=== PATIENT | male | born 1960 | race Caucasian/White ===

== ENCOUNTER 2020-06-26 07:17 | Inpatient (IN) | payer OTHER, SELFPAY ==
[2020-06-26] VITALS (8 sets, daily range): BP systolic 129–162; BP diastolic 61–97; PULSE 76–110; RESP 18; TEMP 36.4–36.8; O2SAT 95–100; BMI 38.3
--- NOTE | ~2020-06-26 | CT_ITS ---
EXAMINATION: CT pelvis wo con EXAM DATE: 06/27/2020 08:26 INDICATION: Hematuria, possible bladder clot. TECHNIQUE: Spiral CT pelvis wo con was performed without contrast. Axial, coronal and sagittal imag es were reviewed. The dose-length product (DLP) for this examination was 810.49 mGy-cm. The exposur e was tailored according to patient size (auto mA exposure control), and iterative reconstruction ( IR) was used as additional dose reduction technique. There is no prior study for comparison. FINDINGS: There is a Mckinney catheter within collapsed bladder. There is prostatomegaly, with the prost ate measuring 5.5 cm transverse dimension. No focal bladder clot is specifically identified. There ar e some limitations from right hip replacement causing metallic artifact. Severe left hip osteoarthrit is. No hydroureter. Nonobstructive bowel gas pattern with moderate amount of colonic stool and gas. IMPRESSION: 1. Mckinney catheter in position. 2. Moderate prostatomegaly. Reviewed, dictated and finalized at location B.
--- NOTE | 2020-06-26 07:54 | ED.MALEGU ---
HPI - Male Genitourinary General Chief complaint: Urogenital-Male Stated complaint: watts not draining Time Seen by Provider: 06/26/20 07:24 History of Present Illness HPI Narrative: Patient is a 60-year-old male who presents the ER with urinary retention. Patient is recently undergone right hip replacement. He then developed urinary retention. He went to urology consultants and had a Watts catheter placed with some blood removed. He then had to have it readjusted a day later. Patient reports he has had no urine output since yesterday morning. He has discomfort in his lower abdomen and feels like he needs to urinate. No fevers or chills or sweats. No nausea or vomiting. Reports some mild lower extremity edema that is new. Related Data Home Medications Medication Instructions Recorded Confirmed aspirin 81 mg tablet,delayed 81 mg PO DAILY 05/16/20 06/26/20 release folic acid 400 mcg tablet 0.4 mg PO DAILY 05/16/20 06/26/20 magnesium oxide 500 mg capsule 500 mg PO DAILY 05/16/20 06/26/20 vit C,E,zinc,copper-xlkht7k 250 1 cap PO DAILY 05/16/20 06/26/20 mg-lutein 5 mg-zeaxanthin 1 mg capsule famotidine 20 mg PO BID PRN 06/26/20 06/26/20 naproxen 500 mg PO BID 06/26/20 06/26/20 oxycodone-acetaminophen 1 tablet PO Q4-6H PRN 06/26/20 06/26/20 sulfamethoxazole-trimethoprim 1 tablet PO BID 06/26/20 06/26/20 tamsulosin 0.4 mg PO DAILY 06/26/20 06/26/20 Allergies Allergy/AdvReac Type Severity Reaction Status Date / Time No Known Allergies Allergy Unverified 06/26/20 07:26 Review of Systems Review of Systems: All systems reviewed & are unremarkable except as noted in HPI and below Constitutional: Constitutional: Denies chills, Denies fever(s) and Denies weakness Gastrointestinal: Gastrointestinal: Reports abdominal pain, Denies nausea and Denies vomiting Genitourinary: Genitourinary: Reports hematuria, Reports oliguria and Denies dysuria PMFSH Past Medical History Medical History BPH w/o urinary obs/LUTS Hyperlipidemia, unspecified Surgical History Surgical History History of hip replacement Family History Family History Sibling Patient's brother is in good health Social History Social History Years smoked: 12 Smoking status: Former smoker Smoking end date: 09/23/85 Alcohol intake: never Gender identity (if verbalized by the patient): Male Sexual Orientation (if Verbalized by the Patient): Straight or Heterosexual Spiritual care concerns: No Exam Narrative: Exam Narrative: GENERAL: Well-appearing, well-nourished, and in no acute distress. HEAD: Normocephalic, atraumatic. CHEST: Clear to auscultation. No respiratory distress. HEART: Regular rate and rhythm. Normal peripheral pulses. ABDOMEN: Soft, nontender, distended bladder felt at the umbilicus. EXTREMITIES: Normal range of motion. No edema. SKIN: Warm, dry, no rash. NEURO: Alert and oriented x3. PSYCH: Normal mood and affect. Course Course Emergency Course: Discussed case with urology. Admit to their service, continue IV hydration. 1 large blood clot removed otherwise no additional clots with the CBI. Vital Signs Vital signs: Vital Signs Temperature 97.6 F 06/26/20 07:21 Pulse Rate 110 H 06/26/20 07:21 Respiratory Rate 18 06/26/20 07:21 Blood Pressure 162/97 H 06/26/20 07:21 Pulse Oximetry 100 06/26/20 07:21 Temperature 97.8 F 06/26/20 14:00 Pulse Rate 94 06/26/20 14:00 Respiratory Rate 18 06/26/20 14:00 Blood Pressure 137/65 06/26/20 14:00 Pulse Oximetry 96 06/26/20 14:00 MDM - Male Genitourinary Lab Data Result diagrams: 06/26/20 13:47 06/26/20 07:58 Labs: Lab Results 06/26/20 06/26/20 06/26/20 Range/Units 07:58 07:58 07:5
[2020-06-26 08:06] LABS: Basophils Absolute Auto 0.1 K/mm3 (0.0-0.1); Basophils Percent Auto 0.9 % (0.2-1.2); Eosinophils Absolute Auto 0.1 K/mm3 (0-0.3); Eosinophils Percent Auto 1.7 % (0-4.4); Hematocrit 30.6 % (42.0-52.0); Immature Granulocyte Absolute 0.05 K/mm3 (0.00-0.031); Immature Granulocyte Percent A 0.9 % (0-0.5); Lymphocytes Absolute Auto 0.98 K/mm3 (0.9-3.2); Lymphocytes Percent Auto 16.8 % (18.3-44.2); Mean Corpuscular HGB Conc 32.7 g/dl (32-36); Mean Corpuscular Hemoglobin 29.3 pg (26-34); Mean Corpuscular Volume 89.7 fl (80-100); Mean Platelet Volume 7.5 fl (7.4-10.4); Monocytes Absolute Auto 0.5 K/mm3 (0.1-0.6); Monocytes Percent Auto 8.1 % (2.6-8.5); Neutrophils Absolute Auto 4.2 K/mm3 (1.3-6.7); Neutrophils Percent Auto 71.6 % (45.5-73.1); Platelet Count Result 209 k/mm3 (150-375); Red Blood Count 3.41 M/mm3 (4.6-6.20); Red Cell Distribution Width 12.2 % (11.5-14.5); White Blood Count 5.8 K/mm3 (4.5-10.0)
[2020-06-26 08:11] LABS: Add Urine Microscopic? YES; Appearance Urine Cloudy (Clear); Bilirubin Urine Negative (Negative); Blood Urine 3+ (Negative); Color Urine Red (Yellow); Glucose Urine UA Negative (Negative); Ketones Urine Negative (Negative); Leukocyte Esterase Ur Trace LEU/UL (Negative); Nitrate Urine Negative (Negative); Protein Urine 2+ mg/dL (Negative); RBC Urine >75 /hpf (0-2); Specific Grav Ur 1.015 (1.001-1.035); Urobilinogen Urine Negative mg/dL (<2.0); WBC Urine >75 /hpf
[2020-06-26 08:17] LABS: Anion Gap 9 mmol/L (8-16); Blood Urea Nitrogen 29 mg/dL (9-20); Calcium 8.9 mg/dL (8.4-10.2); Carbon Dioxide 26 mmol/L (22-30); Chloride 105 mmol/L (98-107); Estimated CRCL calculation 31 ml/min; Estimated Glomerular Filt Rate 25; Glucose 100 mg/dL (75-110); Potassium 5.1 mmol/L (3.4-5.0); Sodium 140 mmol/L (137-145)
--- NOTE | 2020-06-26 08:55 | PC.NURSE ---
patient's medication list updated with list provided by
--- NOTE | 2020-06-26 09:12 | PC.NURSE ---
3 way watts catheter noted to have 2500 ml urine output, blood tinged with clots noted. CBI started at this time.
[2020-06-26] MEDS: SODIUM CHLORIDE 0.9% IV 1,000 ML 125 ML IV CONT ×2 (11:47→20:40)
--- NOTE | 2020-06-26 12:30 | PC.NURSE ---
This patient, Gab Gibson, was admitted to 3 [facility] Surg Room 319-01. Patient/family oriented to hospital policies and general routines including ID bracelet, bed and alarms, visiting hours, pain management, procedures, bathroom and other care routines, personal items, smoking policy, room service/diet, and visiting hours. Valuables list has been completed. Information on how to activate the Rapid Response Team has been discussed. Patient/Family are encouraged to report perceived risks to care and to ask questions if they do not understand what they are told or what they should do.
--- NOTE | 2020-06-26 13:16 | PM.IMHP ---
H&P: HPI History of Present Illness Date/Time: 06/26/20 13:16 Chief complaint: Urinary retention/acute kidney injury Narrative: Gab Gibson is a 60 year old male without prior significant urological history until a recent orthopedic procedure, after which he developed postoperative urinary retention. Retention went unrecognized for nearly a week and when he eventually came to have a catheter placed over 1000 cc was drained. He has then developed intermittent gross hematuria with clot retention ever is a result, almost certainly, of rapid bladder decompression. Prior to all this he has no significant voiding symptoms or other urological problems. Review of Systems Cardiovascular: Cardiovascular: Denies chest pain, Denies lightheadedness, Denies palpitations and Denies dyspnea Respiratory: Respiratory: Denies dyspnea Gastrointestinal: Gastrointestinal: Denies diarrhea, Denies nausea and Denies vomiting Genitourinary: Genitourinary: Denies hematuria and Denies dysuria Endocrine: Endocrine: Denies palpitations PMFSH Past Medical History Medical History BPH w/o urinary obs/LUTS Hyperlipidemia, unspecified Surgical History Surgical History History of hip replacement Family History Family History Sibling Patient's brother is in good health Social History Social History Years smoked: 12 Smoking status: Former smoker Smoking end date: 09/23/85 Alcohol intake: never Gender identity (if verbalized by the patient): Male Sexual Orientation (if Verbalized by the Patient): Straight or Heterosexual Spiritual care concerns: No Meds Home Medications and Allergies Home Medications Medication Instructions Recorded Confirmed Type aspirin 81 mg tablet,delayed 81 mg PO DAILY 05/16/20 06/26/20 History release folic acid 400 mcg tablet 0.4 mg PO DAILY 05/16/20 06/26/20 History magnesium oxide 500 mg capsule 500 mg PO DAILY 05/16/20 06/26/20 History vit C,E,zinc,copper-[id number] 250 1 cap PO DAILY 05/16/20 06/26/20 History mg-lutein 5 mg-zeaxanthin 1 mg capsule famotidine 20 mg PO BID PRN 10/04/20 10/04/20 History naproxen 500 mg PO BID 06/26/20 06/26/20 History oxycodone-acetaminophen 1 tablet PO Q4-6H PRN 06/26/20 06/26/20 History sulfamethoxazole-trimethoprim 1 tablet PO BID 06/26/20 06/26/20 History tamsulosin 0.4 mg PO DAILY 06/26/20 06/26/20 History Allergies Allergy/AdvReac Type Severity Reaction Status Date / Time No Known Allergies Allergy Unverified 06/26/20 07:26 Vital Signs Vital Signs - 24 hr 06/26/20 07:21 06/26/20 08:26 06/26/20 09:25 Temperature 97.6 F Pulse Rate 110 H 84 84 Respiratory Rate 18 18 18 Blood Pressure 162/97 H 133/75 147/74 H Pulse Oximetry 100 95 99 06/26/20 10:26 06/26/20 11:11 06/26/20 11:20 Temperature 98.0 F Pulse Rate 88 77 81 Respiratory Rate 18 18 18 Blood Pressure 145/76 H 140/76 147/83 H Pulse Oximetry 100 100 98 Exam Const: General: no acute distress Resp: Effort & Inspection: normal respiratory effort GI: Inspection: non-distended GI Palp: No abdominal tenderness and No Guarding due to palpation present (GI) Auscultation: normal bowel sounds H&P: Results Labs Labs: Short CBC 06/26/20 Range/Units 07:58 WBC 5.8 (4.5-10.0) K/mm3 Hgb 10.0 L (14.0-18.0) g/dL Hct 30.6 L (42.0-52.0) % Plt Count 209 (150-375) k/mm3 BMP 06/26/20 07:58 Sodium 140 Potassium 5.1 H Chloride 105 Carbon Dioxide 26 BUN 29 H Creatinine 2.60 H Glucose 100 Calcium 8.9 Urine 06/26/20 Range/Units 07:58 Urine Color Red H (Yellow) Urine Appearance Cloudy H (Clear) Urine pH 7.0 (5.0-9.0) Ur Specific [place] 1.015 (1.001-1.035) Urine Protein 2+ H (Negative) mg/
[2020-06-26 14:01] LABS: Hematocrit 31.5 % (42.0-52.0); Hemoglobin 10.6 g/dL (14.0-18.0); Mean Corpuscular HGB Conc 33.7 g/dl (32-36); Mean Corpuscular Hemoglobin 29.9 pg (26-34); Mean Corpuscular Volume 88.7 fl (80-100); Mean Platelet Volume 7.8 fl (7.4-10.4); Platelet Count Result 220 k/mm3 (150-375); Red Blood Count 3.55 M/mm3 (4.6-6.20); White Blood Count 6.6 K/mm3 (4.5-10.0)
[2020-06-26] MEDS: FINASTERIDE 5 MG TABLET PO (14:40)
[2020-06-26] MEDS: TAMSULOSIN HCL 0.4 MG CAPSULE PO (20:40)
[2020-06-27] MEDS: SODIUM CHLORIDE 0.9% IV 1,000 ML 125 ML IV CONT ×3 (04:47→20:27)
[2020-06-27 06:00] VITALS: BP 135/75; PULSE 82; RESP 18; TEMP 36.6; O2SAT 97
[2020-06-27 06:45] LABS: Anion Gap 6 mmol/L (8-16); Blood Urea Nitrogen 18 mg/dL (9-20); Calcium 8.4 mg/dL (8.4-10.2); Carbon Dioxide 26 mmol/L (22-30); Chloride 110 mmol/L (98-107); Estimated CRCL calculation 62 ml/min; Estimated Glomerular Filt Rate 56; Glucose 98 mg/dL (75-110); Potassium 4.4 mmol/L (3.4-5.0); Sodium 142 mmol/L (137-145)
--- NOTE | 2020-06-27 07:33 | WPDUROPN2 ---
Progress Note: A&P Assessment and Plan (1) BPH w/o urinary obs/LUTS: Code(s): N40.0 - Benign prostatic hyperplasia without lower urinary tract symptoms Status: Acute (2) Gross hematuria: Code(s): R31.0 - Gross hematuria Status: Acute Assessment and Plan: Postoperative urinary retention resulting from underlying BPH complicated by adverse effects of anesthetics and analgesics on normal detrusor function, in addition to overdistention of bladder. Intermittent hematuria clot retention very likely related to rapid bladder decompression. Patient on continuous bladder irrigation on his urine is perfectly clear. I will maximize medication for BPH ( Flomax b.i.d. and finasteride ) with voiding trial in the next day or two, if his urine remains clear 06/27/2020 Urine clear on CBI but I can irrigate some clots. CT-pelvis to get a look at bladder. Subjective Subjective Date/Time Seen: 06/27/20 07:33 No complaints, comfortable. Review of Systems Cardiovascular: Cardiovascular: Denies chest pain, Denies lightheadedness, Denies palpitations and Denies dyspnea Respiratory: Respiratory: Denies dyspnea Gastrointestinal: Gastrointestinal: Denies diarrhea, Denies nausea and Denies vomiting Genitourinary: Genitourinary: Denies hematuria and Denies dysuria Endocrine: Endocrine: Denies palpitations Exam Const: General: no acute distress Resp: Effort & Inspection: normal respiratory effort GI: Inspection: non-distended GI Palp: No abdominal tenderness and No Guarding due to palpation present (GI) Auscultation: normal bowel sounds Objective Data Vital Signs Vital Signs: Vital Signs - 24 hr 06/26/20 08:26 06/26/20 09:25 06/26/20 10:26 Temperature Pulse Rate 84 84 88 Respiratory Rate 18 18 18 Blood Pressure 133/75 147/74 H 145/76 H Pulse Oximetry 95 99 100 06/26/20 11:11 06/26/20 11:20 06/26/20 14:00 Temperature 98.0 F 97.8 F Pulse Rate 77 81 94 Respiratory Rate 18 18 18 Blood Pressure 140/76 147/83 H 137/65 Pulse Oximetry 100 98 96 06/26/20 22:00 06/27/20 06:00 Temperature 98.3 F 97.9 F Pulse Rate 76 82 Respiratory Rate 18 18 Blood Pressure 129/61 135/75 Pulse Oximetry 98 97 Intake/Output Intake/Output: Intake & Output 06/24/20 06/25/20 06/26/20 06/27/20 23:59 23:59 23:59 23:59 Intake Total 44444 1250 Output Total 72653 Balance -3920 1250 Meds/Results Medications: Active Medications Generic Name Dose Route Start Last Admin Trade Name Freq PRN Reason Stop Dose Admin Acetaminophen 650 mg 06/26/20 10:22 Tylenol Tablet PO Q4H PRN Mild Pain (1-3) or Fever Hydrocodone Bitart/Acetaminophen 1 tab 06/26/20 10:22 [place] 5-325 Mg PO Q4H PRN Pain Rated 4-6 Finasteride 5 mg 06/26/20 09:00 06/26/20 14:40 Proscar PO 5 mg QAM PHUONG Administration Sodium Chloride 1,000 mls @ 125 mls/hr 06/26/20 10:25 06/27/20 04:47 Normal Saline Iv IV CONT 125 mls/hr .Q8H PHUONG Administration Morphine Sulfate 4 mg 06/26/20 10:22 Morphine Sulfate Inj (*Crx) IV PUSH Q2H PRN Pain Rated 7-10 Tamsulosin HCl 0.4 mg 06/26/20 21:00 06/26/20 20:40 Flomax PO 0.4 mg Q12HR PHUONG Administration Labs Labs: Laboratory Results - last 24 hr 06/26/20 06/26/20 06/26/20 07:58 07:58 07:58 WBC 5.8 RBC 3.41 L Hgb 10.0 L Hct 30.6 L MCV 89.7 MCH 29.3 MCHC 32.7 RDW 12.2 Plt Count 209 MPV 7.5 Immature Gran % (Auto) 0.9 H Neut % (Auto) 71.6 Lymph % (Auto) 16.8 L [place] % (Auto) 8.1 Eos % (Auto) 1.7 Baso % (Auto) 0.9 Lymph # (Auto) 0.98 [place] # (Auto) 0.5 Eos # (Auto) 0.1 Baso # (Auto) 0.1 Abs Immat Gran (auto) 0.05 H Absolute Neuts (auto) 4.2 Absolute Nucleated RBC 0.0 Nucleated RBC % 0.0 Sodium 140 Potassium 5.1 H Chloride 105 Carbon Dioxide 26 Anion Gap 9 BUN 29 H Creatinine 2.60 H Estim Creat Lizzette
[2020-06-27] MEDS: WATER FOR IRRIGATION, STERILE 1,000 ML BOTTLE 1000 ML (11:43)
[2020-06-27] MEDS: FINASTERIDE 5 MG TABLET PO (11:43)
[2020-06-27] MEDS: TAMSULOSIN HCL 0.4 MG CAPSULE PO ×2 (11:43→20:23)
[2020-06-27 14:00] VITALS: BP 127/68; PULSE 85; RESP 18; TEMP 36.6; O2SAT 100
[2020-06-27 15:48] LABS: Hematocrit 29.2 % (42.0-52.0); Hemoglobin 9.7 g/dL (14.0-18.0); Mean Corpuscular HGB Conc 33.2 g/dl (32-36); Mean Corpuscular Hemoglobin 29.8 pg (26-34); Mean Corpuscular Volume 89.8 fl (80-100); Mean Platelet Volume 8.3 fl (7.4-10.4); Platelet Count Result 236 k/mm3 (150-375); Red Blood Count 3.25 M/mm3 (4.6-6.20); Red Cell Distribution Width 11.9 % (11.5-14.5); White Blood Count 6.7 K/mm3 (4.5-10.0)
--- NOTE | 2020-06-27 17:27 | WPDANESEPP ---
Anes - Eval Pre Procedure Procedure: Operation Date: 06/28/20 16:00 Proposed Procedures p Cystoscopy, Evacuation Bladder Clots - Zachary Mccarty MD Date/Time: 06/27/20 17:27 Pre Op Diagnosis: Urinary retention/acute kidney injury Patient Data Age: 60 Gender: M Height: 5 ft 6 in Weight: 107.7 kg Last Vital Signs Temp 97.9 F 06/27/20 14:00 Pulse 85 06/27/20 14:00 Resp 18 06/27/20 14:00 BP 127/68 06/27/20 14:00 Pulse Ox 100 06/27/20 14:00 Allergies Allergy/AdvReac Type Severity Reaction Status Date / Time No Known Allergies Allergy Unverified 06/26/20 07:26 Home Medications Medication Instructions Recorded Confirmed Type aspirin 81 mg tablet,delayed 81 mg PO DAILY 05/16/20 06/26/20 History release folic acid 400 mcg tablet 0.4 mg PO DAILY 05/16/20 06/26/20 History magnesium oxide 500 mg capsule 500 mg PO DAILY 05/16/20 06/26/20 History vit C,E,zinc,copper-mnosy7d 250 1 cap PO DAILY 05/16/20 06/26/20 History mg-lutein 5 mg-zeaxanthin 1 mg capsule famotidine 20 mg PO BID PRN 06/26/20 06/26/20 History naproxen 500 mg PO BID 06/26/20 06/26/20 History oxycodone-acetaminophen 1 tablet PO Q4-6H PRN 06/26/20 06/26/20 History sulfamethoxazole-trimethoprim 1 tablet PO BID 06/26/20 06/26/20 History tamsulosin 0.4 mg PO DAILY 06/26/20 06/26/20 History Laboratory Tests 06/27/20 06/27/20 05:47 14:38 WBC 6.7 K/mm3 K/mm3 (4.5-10.0) RBC 3.25 M/mm3 L M/mm3 (4.6-6.20) Hgb 9.7 g/dL L g/dL (14.0-18.0) Hct 29.2 % L % (42.0-52.0) MCV 89.8 fl fl (80-100) MCH 29.8 pg pg (26-34) MCHC 33.2 g/dl g/dl (32-36) RDW 11.9 % % (11.5-14.5) Plt Count 236 k/mm3 k/mm3 (150-375) MPV 8.3 fl fl (7.4-10.4) Sodium 142 mmol/L mmol/L (137-145) Potassium 4.4 mmol/L mmol/L (3.4-5.0) Chloride 110 mmol/L H mmol/L (98-107) Carbon Dioxide 26 mmol/L mmol/L (22-30) Anion Gap 6 mmol/L L mmol/L (8-16) BUN 18 mg/dL D mg/dL (9-20) Creatinine 1.30 mg/dL mg/dL (0.7-1.3) Estim Creat Clear Calc 62 ml/min ml/min Estimated GFR 56 L (59 - ) Glucose 98 mg/dL mg/dL (75-110) Calcium 8.4 mg/dL mg/dL (8.4-10.2) Patient hx anesthesia problems: none Family hx anesthesia problems: other (slow to wake) [facility] Past Medical History Medical History Acute kidney injury BPH w/o urinary obs/LUTS Gross hematuria History of smoking Hyperlipidemia, unspecified Medication monitoring encounter Morbid obesity due to excess calories Obstructed Mckinney catheter Vitamin D deficiency Surgical History Surgical History History of hip replacement Family History Family History Sibling Patient's brother is in good health Social History Social History Years smoked: 12 Smoking status: Former smoker Smoking end date: 09/23/85 Alcohol intake: never Gender identity (if verbalized by the patient): Male Sexual Orientation (if Verbalized by the Patient): Straight or Heterosexual Spiritual care concerns: No Exam Day of Procedure 06/27/20 17:27
[2020-06-27 22:00] VITALS: BP 147/71; PULSE 82; RESP 18; TEMP 36.3; O2SAT 99
[2020-06-28] VITALS (11 sets, daily range): BP systolic 108–158; BP diastolic 68–91; PULSE 82–109; RESP 14–18; TEMP 36.2–37.2; O2SAT 94–100
[2020-06-28 06:27] LABS: Anion Gap 6 mmol/L (8-16); Blood Urea Nitrogen 13 mg/dL (9-20); Calcium 8.5 mg/dL (8.4-10.2); Carbon Dioxide 25 mmol/L (22-30); Chloride 109 mmol/L (98-107); Estimated CRCL calculation 80 ml/min; Estimated Glomerular Filt Rate > 60; Glucose 96 mg/dL (75-110); Sodium 140 mmol/L (137-145)
[2020-06-28] MEDS: SODIUM CHLORIDE 0.9% IV 1,000 ML 125 ML IV CONT ×2 (06:59→18:34)
--- NOTE | 2020-06-28 07:22 | WPDUROPN2 ---
Progress Note: A&P Assessment and Plan (1) BPH w/o urinary obs/LUTS: Code(s): N40.0 - Benign prostatic hyperplasia without lower urinary tract symptoms Status: Acute (2) Gross hematuria: Code(s): R31.0 - Gross hematuria Status: Acute Assessment and Plan: Urine clear overnight and serum creat. back to normal. Bladder 1/2-filled and catheter removed for voiding trial this morning. I've scheduled a cystoscopy this afternoon but, if he voids I will call that off. Subjective Subjective Date/Time Seen: 06/28/20 07:22 Comfortable, urine clear overnight Review of Systems Cardiovascular: Cardiovascular: Denies chest pain, Denies lightheadedness, Denies palpitations and Denies dyspnea Respiratory: Respiratory: Denies dyspnea Gastrointestinal: Gastrointestinal: Denies diarrhea, Denies nausea and Denies vomiting Genitourinary: Genitourinary: Denies hematuria and Denies dysuria Endocrine: Endocrine: Denies palpitations Exam Const: General: no acute distress Resp: Effort & Inspection: normal respiratory effort GI: Inspection: non-distended GI Palp: No abdominal tenderness and No Guarding due to palpation present (GI) Auscultation: normal bowel sounds Objective Data Vital Signs Vital Signs: Vital Signs - 24 hr 06/27/20 14:00 06/27/20 22:00 Temperature 97.9 F 97.4 F L Pulse Rate 85 82 Respiratory Rate 18 18 Blood Pressure 127/68 147/71 H Pulse Oximetry 100 99 Intake/Output Intake/Output: Intake & Output 06/25/20 06/26/20 06/27/20 06/28/20 23:59 23:59 23:59 23:59 Intake Total 03432 4210 1600 Output Total 40482 3450 3225 Balance -3920 131 -4235 Meds/Results Medications: Active Medications Generic Name Dose Route Start Last Admin Trade Name Freq PRN Reason Stop Dose Admin Acetaminophen 650 mg 06/26/20 10:22 Tylenol Tablet PO Q4H PRN Mild Pain (1-3) or Fever Hydrocodone Bitart/Acetaminophen 1 tab 06/26/20 10:22 [place] 5-325 Mg PO Q4H PRN Pain Rated 4-6 Finasteride 5 mg 06/26/20 09:00 06/27/20 11:43 Proscar PO 5 mg QAM PHUONG Administration Sodium Chloride 1,000 mls @ 125 mls/hr 06/26/20 10:25 06/28/20 06:59 Normal Saline Iv IV CONT 125 mls/hr .Q8H PHUONG Administration Morphine Sulfate 4 mg 06/26/20 10:22 Morphine Sulfate Inj (*Crx) IV PUSH Q2H PRN Pain Rated 7-10 Tamsulosin HCl 0.4 mg 06/26/20 21:00 06/27/20 20:23 Flomax PO 0.4 mg Q12HR PHUONG Administration Radiology Results: ITS Impressions Pelvis CT 06/27/20 08:39 IMPRESSION: 1. Mckinney catheter in position. 2. Moderate prostatomegaly. Labs Labs: Laboratory Results - last 24 hr 06/27/20 06/28/20 14:38 05:42 WBC 6.7 RBC 3.25 L Hgb 9.7 L Hct 29.2 L MCV 89.8 MCH 29.8 MCHC 33.2 RDW 11.9 Plt Count 236 MPV 8.3 Sodium 140 Potassium 4.0 Chloride 109 H Carbon Dioxide 25 Anion Gap 6 L BUN 13 D Creatinine 1.00 Estim Creat Clear Calc 80 Estimated GFR > 60 Glucose 96 Calcium 8.5
--- NOTE | 2020-06-28 08:24 | WPDANESEPPF ---
Anes - Initial Pre Proc Eval Procedure: Operation Date: 06/28/20 16:00 Proposed Procedures p Cystoscopy, Evacuation Bladder Clots - Zachary Mccarty MD Date/Time: 06/28/20 08:24 Surgeon: Zachary Mccarty MD Pre Op Diagnosis: Urinary retention/acute kidney injury Patient Data Age: 60 Gender: M Height: 1.68 m Weight: 107.7 kg Last Vital Signs Temp 36.6 C 06/28/20 06:00 Pulse 82 06/28/20 06:00 Resp 18 06/28/20 06:00 BP 138/78 06/28/20 06:00 Pulse Ox 99 06/28/20 06:00 Allergies Allergy/AdvReac Type Severity Reaction Status Date / Time No Known Allergies Allergy Unverified 06/26/20 07:26 Home Medications Medication Instructions Recorded Confirmed Type aspirin 81 mg tablet,delayed 81 mg PO DAILY 05/16/20 06/26/20 History release folic acid 400 mcg tablet 0.4 mg PO DAILY 05/16/20 06/26/20 History magnesium oxide 500 mg capsule 500 mg PO DAILY 05/16/20 06/26/20 History vit C,E,zinc,copper-edoeg6g 250 1 cap PO DAILY 05/16/20 06/26/20 History mg-lutein 5 mg-zeaxanthin 1 mg capsule famotidine 20 mg PO BID PRN 06/26/20 06/26/20 History naproxen 500 mg PO BID 06/26/20 06/26/20 History oxycodone-acetaminophen 1 tablet PO Q4-6H PRN 06/26/20 06/26/20 History sulfamethoxazole-trimethoprim 1 tablet PO BID 06/26/20 06/26/20 History tamsulosin 0.4 mg PO DAILY 06/26/20 06/26/20 History Laboratory Tests 06/27/20 06/28/20 14:38 05:42 WBC 6.7 K/mm3 K/mm3 (4.5-10.0) RBC 3.25 M/mm3 L M/mm3 (4.6-6.20) Hgb 9.7 g/dL L g/dL (14.0-18.0) Hct 29.2 % L % (42.0-52.0) MCV 89.8 fl fl (80-100) MCH 29.8 pg pg (26-34) MCHC 33.2 g/dl g/dl (32-36) RDW 11.9 % % (11.5-14.5) Plt Count 236 k/mm3 k/mm3 (150-375) MPV 8.3 fl fl (7.4-10.4) Sodium 140 mmol/L mmol/L (137-145) Potassium 4.0 mmol/L mmol/L (3.4-5.0) Chloride 109 mmol/L H mmol/L (98-107) Carbon Dioxide 25 mmol/L mmol/L (22-30) Anion Gap 6 mmol/L L mmol/L (8-16) BUN 13 mg/dL D mg/dL (9-20) Creatinine 1.00 mg/dL mg/dL (0.7-1.3) Estim Creat Clear Calc 80 ml/min ml/min Estimated GFR > 60 (59 - ) Glucose 96 mg/dL mg/dL (75-110) Calcium 8.5 mg/dL mg/dL (8.4-10.2) Patient hx anesthesia problems: none Family hx anesthesia problems: other (slow to wake) [facility] Family History Family History Sibling Patient's brother is in good health Social History Social History Years smoked: 12 Smoking status: Former smoker Smoking end date: 09/23/85 Alcohol intake: never Gender identity (if verbalized by the patient): Male Sexual Orientation (if Verbalized by the Patient): Straight or Heterosexual Spiritual care concerns: No Anes - Eval Final PreProcedure Day of Procedure 06/28/20 08:24 Patient weight: obese Heart: regular rate and rhythm Lungs: clear to auscultation and normal air movement Airway: Mallampati scale class II Neurological: alert and oriented Last oral intake: >/= 8 hours ASA classification: III Emergent: no Anesthetic plan: proceed Anesthesia type and monitoring: general LMA and standard monitoring Informed Consent: The patient's anesthetic plan and its attendant risks and benefits were discussed with the patient/family/POA. Questions were solicited and answers provided to the satisfaction of the patient/family/POA.
[2020-06-28] MEDS: FINASTERIDE 5 MG TABLET PO (08:39)
[2020-06-28] MEDS: TAMSULOSIN HCL 0.4 MG CAPSULE PO (08:39)
[2020-06-28] MEDS: LACTATED RINGERS 1,000 ML 30 ML IV CONT (14:40)
--- NOTE | 2020-06-28 14:42 | WPDHPUPDATE1 ---
History and Physical Update Update Date/Time: 06/28/20 14:42 Patient not doing well with voiding trial. Will proceed with cystoscopy, possible clot evacuation. History and Physical has been reviewed, including an updated exam of the patient. There are NO changes in the patient's condition. Risks, benefits, and alternatives have been discussed and questions answered. Patient agrees to proceed with procedure.
[2020-06-28] MEDS: ceFAZolin SODIUM 1 GM VIAL 2 GM IV PUSH (14:45)
[2020-06-28] MEDS: LIDOCAINE HCL 2% GEL UROJET 10 ML PKG MUCOUS MEM (14:56)
--- NOTE | 2020-06-28 15:31 | PC.NURSE ---
Pt was taken to pre op at 1430.
--- NOTE | 2020-06-28 16:29 | PM.PROC ---
Procedure Note - Detailed Date of procedure: 06/28/20 Pre-op diagnosis: Urinary retention/acute kidney injury Post-op diagnosis: same Procedure performed: Cystoscopy with clot evacuation Description of procedure: The patient is brought to the operative suite where he is prepped and draped in a routine sterile fashion while in a dorsal lithotomy position. 2% lidocaine jelly is introducing intraurethrally and allowed to stand for an appropriate period of time. Systemic sedation is administered by the anesthesia department. Cystoscopy is undertaken with a 19F rigid cystoscope. There were no urethral strictures. The prostatic urethral estimated length was 2.5cm. There was moderate obstruction of the prostatic urethra with small median lobe enlargement. The prostatic urethra measures 3.0cm. There is a large clots floating in the dependent portion of the bladder. A small amount of clot was evacuated with a TUMI syringe. The bladder mucosa showed no areas of suspicious hyperemia and there were no neoplasms. Was diffuse patchy hyperemia consistent with recent rapid decompression of the bladder following overdistention. There was a single, orthotopic ureteral orifice bilaterally. At this point the resectescope was removed and a 2F hematuria catheter was placed to continuous irrigation. Efflux from the catheter was clear at the termination of the procedure. The patient was taken to the recovery room having tolerated the procedure well. Anesthesia: GLMA Surgeon: Zachary Mccarty MD Estimated blood loss (mL): 0 Drains: Yes (22F hematuria catheter) Packing: No Pathology: none sent Complications: No immediate complications Condition: stable Disposition: PACU
[2020-06-29] MEDS: SODIUM CHLORIDE 0.9% IV 1,000 ML 125 ML IV CONT (01:52)
[2020-06-29 02:05] VITALS: BP 134/72; PULSE 100; RESP 18; TEMP 36.8; O2SAT 100
[2020-06-29 06:00] VITALS: BP 131/73; PULSE 91; RESP 18; TEMP 36.6; O2SAT 99
[2020-06-29 06:30] LABS: Anion Gap 7 mmol/L (8-16); Blood Urea Nitrogen 13 mg/dL (9-20); Calcium 8.4 mg/dL (8.4-10.2); Carbon Dioxide 26 mmol/L (22-30); Chloride 109 mmol/L (98-107); Estimated CRCL calculation 73 ml/min; Estimated Glomerular Filt Rate > 60; Glucose 95 mg/dL (75-110); Potassium 4.3 mmol/L (3.4-5.0); Sodium 142 mmol/L (137-145)
--- NOTE | 2020-06-29 08:40 | WPDANESPN ---
Anes - Prog Note Post-Op Date/Time: 06/29/20 08:40 Cardiovascular status: normal Respiratory status: normal Airway patency: baseline Mental status: baseline Post-Op hydration status: normal Vital Signs: Last Vital Signs Temp 36.6 C 06/29/20 06:00 Pulse 91 06/29/20 06:00 Resp 18 06/29/20 06:00 BP 131/73 06/29/20 06:00 Pulse Ox 99 06/29/20 06:00 Pain Score (VAS): 0 I/O: Intake & Output 06/28/20 06/29/20 06/29/20 23:59 07:59 15:59 Intake Total 700 1500 Output Total 1300 2275 Balance -600 -775 Laboratory Tests 06/27/20 14:38 06/29/20 05:16 06/29/20 05:16 Sodium 142 Potassium 4.3 Chloride 109 H Carbon Dioxide 26 Anion Gap 7 L BUN 13 Creatinine 1.10 Estim Creat Clear Calc 73 Estimated GFR > 60 Glucose 95 Calcium 8.4 Post-procedural complaints: none Patient Feedback: Patient satisfied with anesthetic care.
[2020-06-29] MEDS: FAMOTIDINE 20 MG TABLET PO (08:41)
[2020-06-29] MEDS: TAMSULOSIN HCL 0.4 MG CAPSULE PO (08:41)
[2020-06-29] MEDS: FINASTERIDE 5 MG TABLET PO (08:41)
--- NOTE | 2020-06-29 08:42 | WPDUROPN2 ---
Progress Note: A&P Assessment and Plan (1) Gross hematuria: Code(s): R31.0 - Gross hematuria Status: Acute Assessment and Plan: Urine remains bloody today on CBI, will continue CBI until urine clears then wean to off and keep CBI off. Will re-assess later this afternoon. (2) BPH w/o urinary obs/LUTS: Code(s): N40.0 - Benign prostatic hyperplasia without lower urinary tract symptoms Status: Acute Assessment and Plan: Suspected Neurogenic bladder, patient will be discharged home with the watts and follow up for Urodynamics in our office. Subjective Subjective Date/Time Seen: 06/29/20 08:42 POD #1 Cystoscopy Review of Systems Cardiovascular: Cardiovascular: Denies chest pain Respiratory: Respiratory: Reports no additional respiratory complaints Gastrointestinal: Gastrointestinal: Denies abdominal pain, Denies nausea and Denies vomiting Genitourinary: Genitourinary: Reports hematuria and Reports other (retention) Exam Resp: Effort & Inspection: normal respiratory effort Cardio: Rate: regular rate GI: GI Palp: Yes Soft to palpation and No Tenderness to palpation present (GI) Urinary Catheter: Urinary Catheter: patent and draining and urine red Extrem: General: no edema Objective Data Vital Signs Vital Signs: Vital Signs - 24 hr 06/28/20 14:41 06/28/20 15:16 06/28/20 15:30 Temperature 98.9 F 97.2 F L Pulse Rate 93 102 H 103 H Respiratory Rate 16 16 16 Blood Pressure 114/90 108/68 136/71 Pulse Oximetry 100 98 96 06/28/20 15:45 06/28/20 16:00 06/28/20 16:10 Temperature Pulse Rate 105 H 101 H 100 Respiratory Rate 18 14 14 Blood Pressure 136/76 135/77 141/80 H Pulse Oximetry 95 94 95 06/28/20 16:25 06/28/20 16:40 06/28/20 19:25 Temperature 97.1 F L 97.3 F L Pulse Rate 100 100 108 H Respiratory Rate 14 16 18 Blood Pressure 140/80 158/81 H 157/91 H Pulse Oximetry 95 100 98 06/28/20 22:00 06/29/20 02:05 06/29/20 06:00 Temperature 98.6 F 98.3 F 97.8 F Pulse Rate 109 H 100 91 Respiratory Rate 18 18 18 Blood Pressure 142/71 H 134/72 131/73 Pulse Oximetry 99 100 99 Intake/Output Intake/Output: Intake & Output 06/26/20 06/27/20 06/28/20 06/29/20 23:59 23:59 23:59 23:59 Intake Total 87582 4210 5150 1500 Output Total 8348962 3306 9791 5975 Balance -3920 287 -3308 -922 Meds/Results Medications: Active Medications Generic Name Dose Route Start Last Admin Trade Name Freq PRN Reason Stop Dose Admin Acetaminophen 650 mg 06/26/20 10:22 Tylenol Tablet PO Q4H PRN Mild Pain (1-3) or Fever Hydrocodone Bitart/Acetaminophen 1 tab 06/26/20 10:22 [place] 5-325 Mg PO Q4H PRN Pain Rated 4-6 Famotidine 20 mg 06/28/20 16:30 06/29/20 08:41 Pepcid PO 20 mg BID PRN Administration Acid Reflux Finasteride 5 mg 06/26/20 09:00 06/29/20 08:41 Proscar PO 5 mg QAM PHUONG Administration Sodium Chloride 1,000 mls @ 125 mls/hr 06/26/20 10:25 06/29/20 01:52 Normal Saline Iv IV CONT 125 mls/hr .Q8H PHUONG Administration Lactated Ringer's 1,000 mls @ 30 mls/hr 06/28/20 08:25 06/28/20 17:51 Lr - Lactated Ringers Iv IV CONT Not Given .Q24H PHUONG Morphine Sulfate 4 mg 06/26/20 10:22 Morphine Sulfate Inj (*Crx) IV PUSH Q2H PRN Pain Rated 7-10 Tamsulosin HCl 0.4 mg 06/29/20 09:00 06/29/20 08:41 Flomax PO 0.4 mg DAILY PHUONG Administration Trimethoprim/Sulfamethoxazole 1 tab 06/28/20 21:00 06/29/20 08:42 Septra Ds PO 1 tab Q12HR PHUONG Administration Radiology Results: ITS Impressions Pelvis CT 06/27/20 08:39 IMPRESSION: 1. Watts catheter in position. 2. Moderate prostatomegaly. Labs Labs: Laboratory Results - last 24 hr 06/29/20 05:16 Sodium 142 Potassium 4.3 Chloride 109 H Carbon Dioxide 26 Anion Gap 7 L BUN 13 Creatinine 1.10 Estim Creat Clear Calc 73 Estimated GFR > 60 Glucose 95 Calcium 8.4
[2020-06-29 14:00] VITALS: BP 135/73; PULSE 86; RESP 16; TEMP 36.6; O2SAT 100
[2020-06-29 22:00] VITALS: BP 111/61; PULSE 82; RESP 20; TEMP 37.3; O2SAT 100
[2020-06-30 06:00] VITALS: BP 116/60; PULSE 84; RESP 20; TEMP 37; O2SAT 95
--- NOTE | 2020-06-30 08:47 | WPDUROPN2 ---
Progress Note: A&P Assessment and Plan (1) Gross hematuria: Code(s): R31.0 - Gross hematuria Status: Acute Assessment and Plan: Restarted CBI. Continue CBI until clear, then wean to off. May irrigate manually PRN if necessary. (2) Acute kidney injury: Code(s): N17.9 - Acute kidney failure, unspecified Status: Acute Assessment and Plan: Resolved with watts placement. (3) Retention of urine: Code(s): R33.9 - Retention of urine, unspecified Status: Acute Assessment and Plan: Potentially a neurogenic bladder. Patient is open to learning self catheterization. Will plan to do urodynamics study in the office when discharged to confirm neurogenic bladder. Subjective Subjective Date/Time Seen: 06/30/20 08:47 POD #2 Cystoscopy with clot evacuation. Patient continues to have bloody urine with small clots on and off CBI. Review of Systems Cardiovascular: Cardiovascular: Denies chest pain Respiratory: Respiratory: Reports no additional respiratory complaints Gastrointestinal: Gastrointestinal: Denies abdominal pain, Denies diarrhea, Denies nausea and Denies vomiting Genitourinary: Genitourinary: Reports hematuria and Reports other (watts) Exam Resp: Effort & Inspection: normal respiratory effort Cardio: Rate: regular rate GI: GI Palp: Yes Soft to palpation and No Tenderness to palpation present (GI) : General: Yes no CVA tenderness Urinary Catheter: Urinary Catheter: patent and draining, urine red and urine with clots Extrem: General: no edema Objective Data Vital Signs Vital Signs: Vital Signs - 24 hr 06/29/20 14:00 06/29/20 22:00 06/30/20 06:00 Temperature 97.8 F 99.1 F 98.6 F Pulse Rate 86 82 84 Respiratory Rate 16 20 20 Blood Pressure 135/73 111/61 116/60 Pulse Oximetry 100 100 95 Intake/Output Intake/Output: Intake & Output 06/27/20 06/28/20 06/29/20 06/30/20 23:59 23:59 23:59 23:59 Intake Total 4210 5150 3730 550 Output Total 3450 6694 7089 9976 Balance 559 -1791 165 -7628 Meds/Results Medications: Active Medications Generic Name Dose Route Start Last Admin Trade Name Freq PRN Reason Stop Dose Admin Acetaminophen 650 mg 06/26/20 10:22 Tylenol Tablet PO Q4H PRN Mild Pain (1-3) or Fever Hydrocodone Bitart/Acetaminophen 1 tab 06/26/20 10:22 [place] 5-325 Mg PO Q4H PRN Pain Rated 4-6 Famotidine 20 mg 06/28/20 16:30 06/29/20 08:41 Pepcid PO 20 mg BID PRN Administration Acid Reflux Finasteride 5 mg 06/26/20 09:00 06/29/20 08:41 Proscar PO 5 mg QAM PHUONG Administration Morphine Sulfate 4 mg 06/26/20 10:22 Morphine Sulfate Inj (*Crx) IV PUSH Q2H PRN Pain Rated 7-10 Tamsulosin HCl 0.4 mg 06/29/20 09:00 06/29/20 08:41 Flomax PO 0.4 mg DAILY PHUONG Administration Trimethoprim/Sulfamethoxazole 1 tab 06/28/20 21:00 06/29/20 19:41 Septra Ds PO 1 tab Q12HR PHUONG Administration Radiology Results: ITS Impressions Pelvis CT 06/27/20 08:39 IMPRESSION: 1. Watts catheter in position. 2. Moderate prostatomegaly.
[2020-06-30] MEDS: FAMOTIDINE 20 MG TABLET PO (09:22)
[2020-06-30] MEDS: TAMSULOSIN HCL 0.4 MG CAPSULE PO (09:22)
[2020-06-30] MEDS: FINASTERIDE 5 MG TABLET PO (09:22)
[2020-06-30 14:00] VITALS: BP 131/76; PULSE 75; RESP 16; TEMP 36.9; O2SAT 97
[2020-06-30] MEDS: WATER FOR IRRIGATION, STERILE 1,000 ML BOTTLE 1000 ML (16:52)
[2020-06-30 22:00] VITALS: BP 132/67; PULSE 83; RESP 16; TEMP 36.8; O2SAT 97
[2020-07-01 06:00] VITALS: BP 124/64; PULSE 79; RESP 16; TEMP 36.7; O2SAT 97
[2020-07-01] MEDS: FINASTERIDE 5 MG TABLET PO (08:26)
[2020-07-01] MEDS: TAMSULOSIN HCL 0.4 MG CAPSULE PO (08:26)
--- NOTE | 2020-07-01 08:59 | WPDUROPN2 ---
Progress Note: A&P Assessment and Plan (1) Retention of urine: Code(s): R33.9 - Retention of urine, unspecified Status: Acute Assessment and Plan: Will continue self catheterization 3x/daily. Follow up next week for URodynamics study on Saturday. Ok to discharge home. (2) Gross hematuria: Code(s): R31.0 - Gross hematuria Status: Acute Assessment and Plan: Hold daily ASA and NSAID's until bleeding resolves. Subjective Subjective Date/Time Seen: 07/01/20 08:59 POD #3 Cystoscopy with clot evacuation. Patient continues to have bloody urine with small clots on and off CBI. Dr. Mccarty and I discussed and decided that removing his watts and starting self catheterization may be best to decrease gross hematuria. His watts was removed early this morning. He was taught self cath this morning and demonstrated well with a 14 fr. straight catheter, he did not have any difficulty. Review of Systems Cardiovascular: Cardiovascular: Denies chest pain Respiratory: Respiratory: Reports no additional respiratory complaints Gastrointestinal: Gastrointestinal: Denies abdominal pain, Denies nausea and Denies vomiting Genitourinary: Genitourinary: Reports hematuria and Denies dysuria Exam Resp: Effort & Inspection: normal respiratory effort Cardio: Rate: regular rate GI: GI Palp: Yes Soft to palpation and No Tenderness to palpation present (GI) : General: Yes no CVA tenderness Extrem: General: no edema Objective Data Vital Signs Vital Signs: Vital Signs - 24 hr 06/30/20 14:00 06/30/20 22:00 07/01/20 06:00 Temperature 98.4 F 98.3 F 98.1 F Pulse Rate 75 83 79 Respiratory Rate 16 16 16 Blood Pressure 131/76 132/67 124/64 Pulse Oximetry 97 97 97 Intake/Output Intake/Output: Intake & Output 06/28/20 06/29/20 06/30/20 07/01/20 23:59 23:59 23:59 23:59 Intake Total 5150 3730 1770 1000 Output Total 6669 8857 1996 1205 Balance -6314 464 -8728 -940 Meds/Results Medications: Active Medications Generic Name Dose Route Start Last Admin Trade Name Freq PRN Reason Stop Dose Admin Acetaminophen 650 mg 06/26/20 10:22 Tylenol Tablet PO Q4H PRN Mild Pain (1-3) or Fever Hydrocodone Bitart/Acetaminophen 1 tab 06/26/20 10:22 [place] 5-325 Mg PO Q4H PRN Pain Rated 4-6 Famotidine 20 mg 06/28/20 16:30 06/30/20 09:22 Pepcid PO 20 mg BID PRN Administration Acid Reflux Finasteride 5 mg 06/26/20 09:00 07/01/20 08:26 Proscar PO 5 mg QAM PHUONG Administration Morphine Sulfate 4 mg 06/26/20 10:22 Morphine Sulfate Inj (*Crx) IV PUSH Q2H PRN Pain Rated 7-10 Tamsulosin HCl 0.4 mg 06/29/20 09:00 07/01/20 08:26 Flomax PO 0.4 mg DAILY PHUONG Administration Trimethoprim/Sulfamethoxazole 1 tab 06/28/20 21:00 07/01/20 08:27 Septra Ds PO 1 tab Q12HR PHUONG Administration Radiology Results: ITS Impressions Pelvis CT 06/27/20 08:39 IMPRESSION: 1. Watts catheter in position. 2. Moderate prostatomegaly.
--- NOTE | 2020-07-01 09:02 | PM.DS ---
DS: Admitting Diagnosis Admitting Diagnosis Admitting Diagnosis: Urinary retention/acute kidney injury DS: Summary Time Spent with Patient Time attestation: Pre-Op Diagnosis: Gross Hematuria/Retention Post Op Diagnosis: Gross Hematuria/Retention Patient was admitted after visiting the ER on 06/26/2020 for clot retention in his watts catheter, which was re-placed in our office last week. He is s/p a hip replacement when the retention was first noted and a catheter was placed post operatively. A 3 way watts was placed while here in the hospital and CBI was started, we were unable to clear the urine on CBI, therefore Dr. Mccarty took him to the OR for a cystoscopy with clot evacuation on 06/28/2020. There were no clots present. He continued to have gross hematuria on CBI for the next 2 days post operatively and it was ultimately decided that his catheter should be removed and that it may be the source of the bleeding. He also failed a voiding trial while here and it is feared that he may have an atonic bladder. Therefore he will follow up next week for a Urodynamics study to confirm neurogenic bladder. He was taught to self cath and will do so 3x/day. He will resume all home meds except ASA and NSAIDs until bleeding stops. He will resume a regular diet and activity and tolerated. He will be discharged home. Exam Resp: Effort & Inspection: normal respiratory effort Cardio: Rate: regular rate GI: GI Palp: Yes Soft to palpation and No Tenderness to palpation present (GI) : General: Yes no CVA tenderness Extrem: General: no edema Discharge Plan Discharge Attending physician on discharge: Tayo Medina Discharging Clinician: Kirstie Umana Anticipated Discharge Date/Time: 07/01/20 08:52 Patient Disposition: Home, Self-Care Activity: no shower Diet: as tolerated Discharge Instructions: Per Care Coordination Patient is current with [facility] for RN and PT. [phone] RN please fax completed discharge instructions to [phone] Patient should self catheterize 3x/day. Call or go to the ER if unable to drain bladder d/t clots, or if fever should develop. Follow up next Saturday for Urodynamics study. Patient Instructions: Antibiotic Form, Pain Management (GEN), How to Catheterize Yourself (Man) (GEN), Continuous Bladder Irrigation (GEN), Blood Thinners (GEN) Stand Alone Forms: General Discharge Information Follow-up/Referrals: Zachary Mccarty MD [Physician] - Discharge Medications: Continued folic acid 400 mcg tablet 0.4 mg PO DAILY RF: 0 Ocuvite Adult 50 Plus 250-5-1 mg capsule 1 cap PO DAILY RF: 0 magnesium oxide 500 mg capsule 500 mg PO DAILY RF: 0 oxycodone-acetaminophen 5-325 mg tablet 1 tablet PO Q4-6H PRN (Reason: Pain) RF: 0 sulfamethoxazole-trimethoprim 800-160 mg tablet 1 tablet PO BID RF: 0 famotidine 20 mg tablet 20 mg PO BID PRN (Reason: Acid Reflux) RF: 0 tamsulosin 0.4 mg capsule 0.4 mg PO DAILY RF: 0 Held aspirin [Adult Aspirin Regimen] 81 mg tablet,delayed release (DR/EC) 81 mg PO DAILY RF: 0 Hold Instructions: Resume on 07/08/20. Resume when bleeding stops. naproxen 500 mg tablet 500 mg PO BID RF: 0 Hold Instructions: Resume on 07/08/20. Resume when bleeding stops Date of admission: 06/26/20 10:44 Primary Care Provider: Dionisio Jones Admitting Provider: Zachary Mccarty Attending physician on admission: Zachary Mccarty Condition: Stable
== END 2020-07-01 10:10 | disposition home health service (06) | DRG 726 ==
LOC: ANHED 08:08 → ANH3MEDSUR 11:00
PROVIDERS: Admitting Provider Urology; Emergency Provider Emergency Medicine; PCP Internal Medicine; Visit Provider Urology
PROC: 0TCB8ZZ Extirpation of Matter from Bladder, Via Natural or Artificial Opening Endoscopic (ICD-10-PCS; CPT 52001; principal; 2020-06-28 16:00)
DX: N40.1 Benign prostatic hyperplasia with lower urinary tract symptoms (principal); N17.9 Acute kidney failure, unspecified; N32.89 Other specified disorders of bladder; R31.0 Gross hematuria; R33.8 Other retention of urine; R33.0 Drug induced retention of urine; T41.45XA Adverse effect of unspecified anesthetic, initial encounter; T39.95XA Adverse effect of unspecified nonopioid analgesic, antipyretic and antirheumatic, initial encounter; E78.5 Hyperlipidemia, unspecified; E55.9 Vitamin D deficiency, unspecified; Z28.21 Immunization not carried out because of patient refusal; Z96.641 Presence of right artificial hip joint; Z87.891 Personal history of nicotine dependence; Z79.82 Long term (current) use of aspirin; Z79.899 Other long term (current) drug therapy
CPT/HCPCS: 36415; 72192; 80048; 81001; 85025; 85027; 87086; 99285; A9270; C1757; J0690; J1100; J2405; J2704; J3010; J7030; J7120

== ENCOUNTER 2020-07-02 17:56 | Emergency (ER) | payer OTHER, SELFPAY ==
[2020-07-02 18:05] VITALS: BP 134/77; PULSE 109; RESP 20; TEMP 36.8; O2SAT 100
--- NOTE | 2020-07-02 18:08 | ED.MALEGU ---
HPI - Male Genitourinary General Chief complaint: Urogenital-Male Stated complaint: blood clots in catheters, unable to empty bladder Time Seen by Provider: 07/02/20 18:08 Source: patient and family Mode of arrival: ambulatory Limitations: no limitations History of Present Illness HPI Narrative: Patient is a 60-year-old male who presents for evaluation of urinary retention, unable to do at home straight catheterization. Patient was discharged home July 01, yesterday, where he had been admitted status post hip replacement for urinary retention secondary to clot formation, now thought to have a neurogenic bladder. Patient denies fever, chills, nausea or vomiting. He does report some lower abdominal fullness. He states that he was able to successfully straight catheterize himself 3 times today, but this afternoon met quite a bit of resistance and then noticed some blood clot present coming from the urethra. Related Data Home Medications Medication Instructions Recorded Confirmed tamsulosin 0.4 mg PO DAILY 06/26/20 06/26/20 Allergies Allergy/AdvReac Type Severity Reaction Status Date / Time No Known Allergies Allergy Unverified 06/26/20 07:26 Review of Systems Review of Systems: Narrative: CONSTITUTIONAL: Denies fever CARDIOVASCULAR: Denies chest pain RESPIRATORY: Denies cough or dyspnea. GASTROINTESTINAL: Reports abdominal fullness : Reports blood clot present SKIN: Denies rash MUSCULOSKELETAL: Denies back pain NEUROLOGIC: Denies headache [facility] Past Medical History Medical History (Updated 07/02/20 @ 21:41 by Kayla Bailey MD) Acute kidney injury BPH w/o urinary obs/LUTS Gross hematuria History of smoking Hyperlipidemia, unspecified Medication monitoring encounter Obstructed Mckinney catheter Vitamin D deficiency Surgical History Surgical History History of hip replacement Family History Family History Sibling Patient's brother is in good health Social History Social History Years smoked: 12 Smoking status: Former smoker Smoking end date: 09/23/85 Alcohol intake: never Gender identity (if verbalized by the patient): Male Spiritual care concerns: No Exam Narrative: Exam Narrative: GENERAL: Awake, alert, conversant HEAD: Normocephalic, atraumatic. EYES: PERRLA and EOMI. ENT: Nares clear, no rhinorrhea or epistaxis. Mucous membranes moist. NECK: Supple. CHEST: No respiratory distress, breathing even and non labored HEART: Regular rate, sinus rhythm ABDOMEN: Mild distention, mildly tender suprapubic area : Penis is uncircumcised, there is blood present at the urethral meatus EXTREMITIES: Normal range of motion. No edema. SKIN: Warm, dry, no rash. NEURO:No focal deficits. Alert and oriented x3 Course Vital Signs Vital signs: Vital Signs Temperature 36.8 C 07/02/20 18:05 Pulse Rate 109 H 07/02/20 18:05 Respiratory Rate 20 07/02/20 18:05 Blood Pressure 134/77 07/02/20 18:05 Pulse Oximetry 100 07/02/20 18:05 Temperature 36.8 C 07/02/20 18:05 Pulse Rate 109 H 07/02/20 18:05 Respiratory Rate 20 07/02/20 18:05 Blood Pressure 134/77 07/02/20 18:05 Pulse Oximetry 100 07/02/20 18:05 MDM - Male Genitourinary MDM Narrative Medical decision making narrative: Patient is a 60-year-old male who presented for evaluation acute urinary retention, patient reportedly unable to successfully straight catheterize himself. IV access obtained, labs are drawn. Patient has a mildly uptrending creatinine, but has been higher than this at previous admission. Stable anemia. Patient with difficulty passing coud? catheter, 18 [place] three-way catheter, multiple attempts by myself as well as nursing staff in the ER, thus urology called and was able to finally pass coud? catheter with [employer]ro[employer]. Patient had a
--- NOTE | 2020-07-02 18:24 | PC.NURSE ---
Bladder scan at 1842, reported over 1L of fluid. pt. mentioned passing up to 2.6L previously.
--- NOTE | 2020-07-02 19:02 | PC.NURSE ---
Attempted watts access x 3. Unsuccessful, Dr. Bailey notified.
[2020-07-02 19:13] LABS: Basophils Absolute Auto 0.2 K/mm3 (0.0-0.1); Basophils Percent Auto 1.9 % (0.2-1.2); Eosinophils Absolute Auto 0.2 K/mm3 (0-0.3); Eosinophils Percent Auto 1.9 % (0-4.4); Hematocrit 28.7 % (42.0-52.0); Hemoglobin 9.6 g/dL (14.0-18.0); Immature Granulocyte Absolute 0.06 K/mm3 (0.00-0.031); Immature Granulocyte Percent A 0.8 % (0-0.5); Lymphocytes Absolute Auto 1.72 K/mm3 (0.9-3.2); Lymphocytes Percent Auto 21.7 % (18.3-44.2); Mean Corpuscular HGB Conc 33.4 g/dl (32-36); Mean Corpuscular Hemoglobin 29.1 pg (26-34); Monocytes Absolute Auto 0.9 K/mm3 (0.1-0.6); Monocytes Percent Auto 11.3 % (2.6-8.5); Neutrophils Percent Auto 62.4 % (45.5-73.1); Platelet Count Result 289 k/mm3 (150-375); Red Cell Distribution Width 12.8 % (11.5-14.5); White Blood Count 7.9 K/mm3 (4.5-10.0)
[2020-07-02 19:22] LABS: Anion Gap 11 mmol/L (8-16); Blood Urea Nitrogen 21 mg/dL (9-20); Calcium 9.2 mg/dL (8.4-10.2); Carbon Dioxide 26 mmol/L (22-30); Chloride 104 mmol/L (98-107); Estimated CRCL calculation 56 ml/min; Estimated Glomerular Filt Rate 52; Glucose 96 mg/dL (75-110); Potassium 4.3 mmol/L (3.4-5.0); Sodium 141 mmol/L (137-145)
--- NOTE | 2020-07-02 20:47 | WPDURCON ---
Assessment and Plan Additional Plan Urinary retention - I was able to place an 18 [place] Citizen Coude Catheter. Approximately 2L of urine returned. I flushed the bladder with 1.5 L of NS. There were a few small clots present. The urine was completely clear at the completion of flushing - I taught the patient how to flush his catheter - He has an appointment set up for urodynamics on Saturday. He will keep the catheter until the urodynamics appointment. Urology Consult Note HPI Date Seen: 07/02/20 Primary Care Provider: Dionisio Jones, Consult Narrative Narrative: Gab Gibson is a 60 year old male with urinary retention. He had a cystoscopy with clot evacuation with Dr. Mccarty last week. The patient was sent home on clean intermittent catheterization. He successfully did CIC 3 times, but on his fourth attempt, he was not able to place the catheter and had hematuria. He come to the ER, and the ER staff was not able to place the catheter. ER US showed a possible clot in the bladder and the catheter was not in the bladder. I was consulted to assist with the complicated catheter placement. Review of Systems Review of Systems: All systems reviewed & are unremarkable except as noted in HPI and below PMFSH Past Medical History Medical History Acute kidney injury BPH w/o urinary obs/LUTS Gross hematuria History of smoking Hyperlipidemia, unspecified Medication monitoring encounter Obstructed Mckinney catheter Vitamin D deficiency Surgical History Surgical History History of hip replacement Family History Family History Sibling Patient's brother is in good health Social History Social History Years smoked: 12 Smoking status: Former smoker Smoking end date: 09/23/85 Alcohol intake: never Gender identity (if verbalized by the patient): Male Spiritual care concerns: No Meds Home Medications and Allergies Home Medications Medication Instructions Recorded Confirmed Type tamsulosin 0.4 mg PO DAILY 06/26/20 06/26/20 History Allergies Allergy/AdvReac Type Severity Reaction Status Date / Time No Known Allergies Allergy Unverified 06/26/20 07:26 Vital Signs Vital Signs - 24 hr 07/02/20 18:05 Temperature 36.8 C Pulse Rate 109 H Respiratory Rate 20 Blood Pressure 134/77 Pulse Oximetry 100 Exam Const: General: cooperative, healthy appearing and comfortable HENMT: Head: normal to inspection, normocephalic and atraumatic Eyes: General: appearance normal, both eyes and all related structures Neck: Neck: normal visual inspection Chest: Chest palpation & inspection: normal inspection of the chest Resp: Effort & Inspection: normal respiratory effort and able to speak in complete sentences GI: Inspection: normal to inspection GI Palp: No abdominal tenderness : Penis: Yes normal penis and Yes circumcised Skin: General skin exam: normal color Neuro: General: oriented to person, oriented to place and oriented to time Psych: Appearance: well kempt Mental Status: mental status grossly normal Speech and movement: Normal speech and movement present Results Labs CBC & Chem 7: 07/02/20 19:05 07/02/20 19:05 Labs: Short CBC 07/02/20 Range/Units 19:05 WBC 7.9 (4.5-10.0) K/mm3 Hgb 9.6 L (14.0-18.0) g/dL Hct 28.7 L (42.0-52.0) % Plt Count 289 (150-375) k/mm3 [facility] 07/02/20 19:05 Sodium 141 Potassium 4.3 Chloride 104 Carbon Dioxide 26 BUN 21 H Creatinine 1.40 H Glucose 96 Calcium 9.2
[2020-07-02 21:13] LABS: Add Urine Microscopic? YES; Appearance Urine Cloudy (Clear); Bacteria Urine Trace /hpf; Bilirubin Urine Negative (Negative); Blood Urine 3+ (Negative); Color Urine Red (Yellow); Glucose Urine UA Negative (Negative); Ketones Urine Negative (Negative); Leukocyte Esterase Ur 1+ LEU/UL (Negative); Mucus Urine Rare /lpf; Nitrate Urine Negative (Negative); Protein Urine 2+ mg/dL (Negative); RBC Urine >75 /hpf (0-2); Specific Grav Ur 1.011 (1.001-1.035); Urobilinogen Urine Negative mg/dL (<2.0); WBC Urine 16-20 /hpf
== END 2020-07-02 22:00 | disposition home or self-care (01) ==
PROVIDERS: Emergency Provider Emergency Medicine; PCP Internal Medicine
DX: N40.1 Benign prostatic hyperplasia with lower urinary tract symptoms (principal); R33.8 Other retention of urine; E78.5 Hyperlipidemia, unspecified; E55.9 Vitamin D deficiency, unspecified; Z96.649 Presence of unspecified artificial hip joint; Z87.891 Personal history of nicotine dependence
CPT/HCPCS: 36415; 51703; 80048; 81001; 85025; 87086; 99283

== ENCOUNTER 2024-11-05 11:27 | Emergency (ER) | payer OTHER, SELFPAY ==
--- NOTE | ~2024-11-05 | CT_ITS ---
Non-contrast Head CT History: Dizziness Technique: Axial non-contrast imaging of the brain was performed. Dose reduction technique was used on this scan by utilizing automated exposure control and iterative reconstruction technique. The dose -length product (DLP) was 681.00 mGy-cm. Findings: There is no evidence of intracranial hemorrhage, mass lesion, or acute infarct. Mild hypod ensity in the periventricular white matter likely presents chronic microvascular ischemic change. Th e ventricles and subarachnoid spaces are normal in size. The calvarium appears normal. The visualiz ed paranasal sinuses and mastoid air cells are clear. Impression: No definite acute abnormality seen. Probable mild chronic microvascular ischemic change. Consider MR to further evaluate for acute pathol ogy, as indicated. Reviewed, dictated and finalized at location . ER HAND Impression: No definite acute abnormality seen. Probable mild chronic microvascular ischemic change. Consider MR to further mariel luate for acute pathology, as indicated.
--- OUTSIDE RECORDS SUMMARY | 2024-11-05 11:34 | XMS_ITS | Clinical Summary ---
Author Organization [facility] Address [address] [place] [phone] Phone Care Team Providers Care Toys And Games Hand Finisher Name Role Phone Dionisio Jones DO Primary Care Provider [phone] Allergies No known active allergies Medications finasteride (PROSCAR) 5 mg tablet daily. 07/22/2020 Active tamsulosin (FLOMAX) 0.4 mg capsule daily. 07/17/2020 Active aspirin (ECOTRIN EC) 325 mg Tablet, Delayed Release (E.C.) Take 1 Tablet (325 mg) by mouth 2 times daily. 09/06/2020 Active HYDROcodone-baylee taminophen (NORCO) 10-325 mg TabletIndicatio ns:Preop testing Take 1 Tablet by mouth every 4 hours as needed for Pain. Max Daily Amount: 6 Tablets 30 Tablet 09/06/2020 Active Social History Tobacco Use Types Packs/Day Years Used Date Smoking Tobacco: Former Cigarettes 1 12 0 09/23/1973 - 09/23/1985 Smokeless Tobacco: Never Alcohol Use Standard Drinks/Week Comments Yes 0 (1 standard drink = 0.6 oz pur e alcohol) Sex and Gender Information Value Date Recorded Sex Assigned at Not on file Legal Sex Male 2:25 PM NURSE'S AIDES TEACHER Gender Identity Not on file Sexual Orientation Not on file Last Filed Vital Signs Vital Sign Reading Time Taken Comments Blood Pressure 110/62 09/06/2020 7:49 AM NURSE'S AIDES TEACHER Pulse 82 09/06/2020 7:49 AM NURSE'S AIDES TEACHER Temperature 36.7 C (98 F) 09/06/2020 7:49 AM NURSE'S AIDES TEACHER Respiratory Rate 16 09/06/2020 7:49 AM NURSE'S AIDES TEACHER Oxygen Saturation 97% 09/06/2020 7:49 AM NURSE'S AIDES TEACHER Inhaled Oxygen Concentration - - Weight 104.2 kg (229 lb 12.8 oz) 09/05/2020 6:47 AM NURSE'S AIDES TEACHER Height 167.6 cm (5' 6 ) 09/05/2020 6:47 AM NURSE'S AIDES TEACHER Body Mass Index 37.09 09/05/2020 6:47 AM NURSE'S AIDES TEACHER Plan of Treatment Health Maintenance Due Date Last Done Comments DTAP/TDAP/TD VACCINES (1 - Tdap) 02/12/1979 COLORECTAL SCREENING 02/12/2005 Colorectal Cancer Screening 02/12/2005 FIT-DNA Q 3 years 02/12/2005 FIT/FOBT Q 1 year 02/12/2005 Flex Sig/CT Colonography Q 5 years 02/12/2005 ZOSTER VACCINE (1 of 2) 02/12/2010 INFLUENZA VACCINE (#1) 2024 RSV VACCINE (60+ or ) (1 - 1-dose 75+ series) 02/12/2035 PNEUMOCOCCAL VACCINE 0-64 YEARS Aged Out No longer eligible based on patient's age to complete this topic Medical Devices Implanted Type Area Photoengraving Printer Device Identifier Shelf Expiration Date Model / Serial / Lot Shell R3 3hl 54mm [id number] - [id number] Implanted:Qty : 1 on 09/05/2020 by Bridger Nelson MD at [facility] Hip Left: Hip [employer] 04/09/2030 [id number] / / [id number] Liner R3 Xlpe 0d 2848-1417 - [id number] Implanted:Qty : 1 on 09/05/2020 by Bridger Nelson MD at [facility] Hip Left: Hip [employer] 02/18/2028 [id number] / / [id number] Stem Fem Polarstem Std Sz3 [id number] - [id number] Implanted:Qty : 1 on 09/05/2020 by Bridger Nelson MD at [facility] Hip Left: Hip [employer] [id number] 01/03/2027 [id number] / / [id number] Head Fem Oxnm 09/05 Tpr 36mm [id number] - [id number] Implanted:Qty : 1 on 09/05/2020 by Bridger Nelson MD at [facility] Hip Left: Hip [employer] 11/29/2029 [id number] / / [id number] Screw Sphrcl Hd 6.5x30mm 1737-1112 - [id number] Implanted:Qty : 1 on 09/05/2020 by Bridger Nelson MD at [facility] Screw Left: Hip [employer] 07/01/2029 [id number] / / [id number] (R) Hip 06/12 Advance Directives For more information, please contact: [phone] * Full Code (Latest Code Status on File) Date Activated Date Inactivated Comments 09/05/2020 12:34 PM 09/06/2020 2:29 PM * Full Code Date Activated Date Inactivated Comments 09/05/2020 6:56 AM 09/05/2020 12:34 PM Care Teams Toys And Games Hand Finisher Relationship Specialty Start Date End Date Dionisio Jones DO [address] [facility] [address] [place] [id number] PCP - General Internal Medicine 09/02/20
[2024-11-05 11:45] VITALS: BP 174/95; PULSE 88; RESP 16; TEMP 36.5; O2SAT 99
--- NOTE | 2024-11-05 13:52 | ED.GENADULT ---
HPI - General Adult General Chief complaint: Dizziness <Selina Bright January, HYDRAULIC BOOM OPERATOR - Last Filed: 11/05/24 13:56> Stated complaint: dizziness x1year worse last 10d w/ n/v <Selina Bright January, - Last Filed: 11/05/24 13:56> Time Seen by Provider: 11/05/24 13:52 <Selina Bright January,N - Last Filed: 11/05/24 13:56> Focused HPI: Gab Gibson is a 64 y/o male who presents with reports of having dizziness/ vertigo that started about 1 year ago, he lost is hearing to his right ear and has constant ringing in his right ear. he was evaluated by ENT who thought it was hearing loss related to COvid and sent him to PT. He states that over the past year he would have episodes of dizziness that lasts a couple hours that would happen infrequently about every 2 months. However now he is having episodes daily for the past week and it is becoming debilitating. He states that he has nausea/vomiting with the episodes. GENERAL: Well-appearing, well-nourished, and in no acute distress. HEAD: Normocephalic, atraumatic. CHEST: Clear to auscultation. ?No respiratory distress. HEART: Regular rate and rhythm.? NEURO: ?Alert and oriented x3. Patient screened in triage and initial orders placed.? ?Additional care and disposition to be based upon?diagnostic testing and treatment. <Selina Bright January, - Last Filed: 11/05/24 13:56> History of Present Illness HPI narrative: Agree with HPI. No head injury. Reports dizziness is like things are shaking in his vision. Has not tried any meclizine. <Rebel Can MD - Last Filed: 11/05/24 20:55> Related Data Home medications: Home Medications ?Medication ?Instructions ?Recorded ?Confirmed ?Last Taken ?Type finasteride 5 mg tablet 5 mg PO DAILY 05/16/21 05/08/24 Unknown History <Selina Bright January, - Last Filed: 11/05/24 13:56> Allergies/adverse reactions: Allergies Allergy/AdvReac Type Severity Reaction Status Date / Time No Known Allergies Allergy Verified 11/05/24 11:33 <Selina Bright January, HYDRAULIC BOOM OPERATOR - Last Filed: 11/05/24 13:56> Review of Systems Review of Systems: All systems reviewed & are unremarkable except as noted in HPI and below <Rebel Can MD - Last Filed: 11/05/24 20:55> Constitutional: Constitutional: Reports no additional constitutional complaints <Rebel Can MD - Last Filed: 11/05/24 20:55> ENT: Reports dizziness, Denies nasal congestion and Denies sore throat <Rebel Can MD - Last Filed: 11/05/24 20:55> Cardiovascular: Cardiovascular: Reports no additional cardiovascular complaints <Rebel Can MD - Last Filed: 11/05/24 20:55> Respiratory: Respiratory: Reports no additional respiratory complaints <Reebl Can MD - Last Filed: 11/05/24 20:55> Neurologic: Denies syncope, Denies headache(s), Denies focal weakness and Denies numbness <Rebel Can MD - Last Filed: 11/05/24 20:55> [facility] Past Medical History Medical History: Medical History (Updated 11/05/24 @ 17:04 by Rebel Can MD) History of smoking Obstructed Mckinney catheter Acute kidney injury Gross hematuria BPH w/o urinary obs/LUTS Hyperlipidemia, unspecified Medication monitoring encounter Vitamin D deficiency <Selina Hernandez HYDRAULIC BOOM OPERATOR - Last Filed: 11/05/24 13:56> Surgical History Surgical History: Surgical History History of hip replacement <Selina Hernandez HYDRAULIC BOOM OPERATOR - Last Filed: 11/05/24 13:56> Family History Family History: Family History Sibling Patient's brother is in good health <Selina Hernandez HYDRAULIC BOOM OPERATOR - Last Filed: 11/05/24 13:56> Social History Social History: Social History Years smoked: 12 Smoking status: Former smoker Second hand tobacco smoke exposure: No Smoking end date: 09/23/85 Alcohol intake: never Substance use: never Lack of Transportation: No Lack of Food: Never True Current Housing: I Have Housing Concerned About Future Housing: No Difficulty Paying Gas/Electric Bills: No Difficulty Paying for Meds: No Currently Unemployed: No Education: Bachelor's Degree Difficulty w/ Childcare or Family Care: No Gender identity (if verbalized by the patient): Male Sexual Orientation (if Verbalized by the Patient): Straight or Heterosexual Spiritual care concerns: No <Selina Hernandez APRN - Last Filed: 11/05/24 13:56> Exam Narrative: GENERAL: Well-appearing, well-nourished, and in no acute distress. HEAD: Normocephalic, atraumatic. EYES: PERRL and EOMI. ENT: Mucous membranes moist. TMs normal bilaterally. NECK: Supple. CHEST: Clear to auscultation. No respiratory distress. HEART: Regular rate and rhythm. Normal peripheral pulses. ABDOMEN: Soft, nontender, nondistended. EXTREMITIES: Normal range of motion. No edema. SKIN: Warm, dry, no rash. NEURO: Alert and oriented x3. No upper lower extremity drift. Normal fczber-ae-wqbh testing and fppg-jn-pjjn testing. <Rebel Can MD - Last Filed: 11/05/24 20:55> Course Vital Signs Vital signs: Vital Signs Temperature 97.7 F 11/05/24 11:45 Pulse Rate 88 11/05/24 11:45 Respiratory Rate 16 11/05/24 11:45 Blood Pressure 174/95 H 11/05/24 11:45 Pulse Oximetry 99 11/05/24 11:45 Oxygen Delivery Room Air 11/05/24 11:45 Temperature 97.7 F 11/05/24 11:45 Pulse Rate 87 11/05/24 17:27 Respiratory Rate 18 11/05/24 15:42 Blood Pressure 167/94 H 11/05/24 17:27 Pulse Oximetry 100 11/05/24 17:27 Oxygen Delivery Room Air 11/05/24 11:45 <Selina Hernandez APRN - Last Filed: 11/05/24 13:56> Vital Signs Temperature 97.7 F 11/05/24 11:45 Pulse Rate 88 11/05/24 11:45 Respiratory Rate 16 11/05/24 11:45 Blood Pressure 174/95 H 11/05/24 11:45 Pulse Oximetry 99 11/05/24 11:45 Oxygen Delivery Room Air 11/05/24 11:45 Temperature 97.7 F 11/05/24 11:45 Pulse Rate 87 11/05/24 17:27 Respiratory Rate 18 11/05/24 15:42 Blood Pressure 167/94 H 11/05/24 17:27 Pulse Oximetry 100 11/05/24 17:27 Oxygen Delivery Room Air 11/05/24 11:45 <Rebel Can MD - Last Filed: 11/05/24 20:55> Medical Decision Making MDM Narrative Medical decision making narrative: -Course: Resting comfortably with occasional intermittent dizziness that results in its own. -Co-morbidities complicating care: Hyperlipidemia, BPH -Hx from independent Sources: Patient -Independent interpretation of studies: Evidence of UTI the patient is not having urinary symptoms. No acute issues with CT brain. -Interventions: IV fluid, meclizine -Shared decision making / Disposition: Discharged home, follow-up with PCP, prescription for cefuroxime and meclizine. <Rebel Can MD - Last Filed: 11/05/24 20:55> Vital Signs Vital Signs: Vital Signs Temperature 97.7 F 11/05/24 11:45 Pulse Rate 88 11/05/24 11:45 Respiratory Rate 16 11/05/24 11:45 Blood Pressure 174/95 H 11/05/24 11:45 Pulse Oximetry 99 11/05/24 11:45 Oxygen Delivery Room Air 11/05/24 11:45 Temperature 97.7 F 11/05/24 11:45 Pulse Rate 87 11/05/24 17:27 Respiratory Rate 18 11/05/24 15:42 Blood Pressure 167/94 H 11/05/24 17:27 Pulse Oximetry 100 11/05/24 17:27 Oxygen Delivery Room Air 11/05/24 11:45 <Selina Hernandez APRN - Last Filed: 11/05/24 13:56> Vital Signs Temperature 97.7 F 11/05/24 11:45 Pulse Rate 88 11/05/24 11:45 Respiratory Rate 16 11/05/24 11:45 Blood Pressure 174/95 H 11/05/24 11:45 Pulse Oximetry 99 11/05/24 11:45 Oxygen Delivery Room Air 11/05/24 11:45 Temperature 97.7 F 11/05/24 11:45 Pulse Rate 87 11/05/24 17:27 Respiratory Rate 18 11/05/24 15:42 Blood Pressure 167/94 H 11/05/24 17:27 Pulse Oximetry 100 11/05/24 17:27 Oxygen Delivery Room Air 11/05/24 11:45 <Rebel Can MD - Last Filed: 11/05/24 20:55> Lab Data Result diagrams: 11/05/24 14:10 11/05/24 14:10 <Selina Hernandez APRN - Last Filed: 11/05/24 13:56> Labs: Lab Results 11/05/24 11/05/24 Range/Units 14:10 15:40 WBC 8.5 (4.5-10.0) K/mm3 RBC 5.15 (4.6-6.20) M/mm3 Hgb 15.4 D (14.0-18.0) g/dL Hct 44.7 (42.0-52.0) % MCV 86.8 (80-100) fl MCH 29.9 (26-34) pg MCHC 34.5 (32-36) g/dl RDW 12.9 (11.5-14.5) % Plt Count 205 (150-375) k/mm3 MPV 7.9 (7.4-10.4) fl Immature Gran % (Auto) 0.4 (0-0.5) % Neut % (Auto) 69.3 (45.5-73.1) % Lymph % (Auto) 19.2 (18.3-44.2) % Saunders % (Auto) 8.9 H (2.6-8.5) % Eos % (Auto) 1.1 (0-4.4) % Baso % (Auto) 1.1 (0.2-1.2) % Lymph # (Auto) 1.64 (0.9-3.2) K/mm3 Saunders # (Auto) 0.8 H (0.1-0.6) K/mm3 Eos # (Auto) 0.1 (0-0.3) K/mm3 Baso # (Auto) 0.1 (0.0-0.1) K/mm3 Abs Immat Gran (auto) 0.03 (0.00-0.031) K/mm3 Absolute Neuts (auto) 5.9 (1.3-6.7) K/mm3 Absolute Nucleated RBC 0.000 (0.0-0.012) K/mm3 Nucleated RBC % 0.0 (0.0-0.2) % Sodium 138 (137-145) mmol/L Potassium 4.3 (3.4-5.0) mmol/L Chloride 102 (98-107) mmol/L Carbon Dioxide 27 (22-30) mmol/L Anion Gap 9 (4-12) mmol/L BUN 22 H (9-20) mg/dL Creatinine 1.01 (0.7-1.3) mg/dL Estim Creat Clear Calc 77 ml/min Estimated GFR > 60 (59 - ) Glucose 94 (65-110) mg/dL Calcium 9.3 (8.4-10.2) mg/dL Total Bilirubin 0.7 (0.2-1.3) mg/dL AST 29 (17-59) U/L ALT 35 (6-50) U/L Alkaline Phosphatase 74 (38-126) U/L Total Protein 8.0 (6.3-8.2) g/dL Albumin 4.9 (3.5-5.1) g/dL Urine Color Yellow (Yellow) Urine Appearance Clear (Clear) Urine pH 6.5 (5.0-9.0) Ur Specific [place] 1.011 (1.001-1.035) Urine Protein Negative (Negative) mg/dL Urine Glucose (UA) Negative (Negative) mg/dL Urine Ketones Negative (Negative) mg/dL Ur Blood (Man) Negative (Negative) Urine Nitrate Positive H (Negative) Urine Bilirubin Negative (Negative) Urine Urobilinogen 0.2 (<2.0) mg/dL Leukocyte Esterase Rfl 1+ H (Negative) LANETTE/UL Urine RBC 0-2 (0-2) /hpf Urine WBC 11-20 H (0-3) /hpf Ur Squamous Epith Cells None seen (Few) /hpf Urine Bacteria 4+ H /hpf Urine Casts 0-2 <Selina Hernandez, HYDRAULIC BOOM OPERATOR - Last Filed: 11/05/24 13:56> Lab Results 11/05/24 11/05/24 Range/Units 14:10 15:40 WBC 8.5 (4.5-10.0) K/mm3 RBC 5.15 (4.6-6.20) M/mm3 Hgb 15.4 D (14.0-18.0) g/dL Hct 44.7 (42.0-52.0) % MCV 86.8 (80-100) fl MCH 29.9 (26-34) pg MCHC 34.5 (32-36) g/dl RDW 12.9 (11.5-14.5) % Plt Count 205 (150-375) k/mm3 MPV 7.9 (7.4-10.4) fl Immature Gran % (Auto) 0.4 (0-0.5) % Neut % (Auto) 69.3 (45.5-73.1) % Lymph % (Auto) 19.2 (18.3-44.2) % Saunders % (Auto) 8.9 H (2.6-8.5) % Eos % (Auto) 1.1 (0-4.4) % Baso % (Auto) 1.1 (0.2-1.2) % Lymph # (Auto) 1.64 (0.9-3.2) K/mm3 Saunders # (Auto) 0.8 H (0.1-0.6) K/mm3 Eos # (Auto) 0.1 (0-0.3) K/mm3 Baso # (Auto) 0.1 (0.0-0.1) K/mm3 Abs Immat Gran (auto) 0.03 (0.00-0.031) K/mm3 Absolute Neuts (auto) 5.9 (1.3-6.7) K/mm3 Absolute Nucleated RBC 0.000 (0.0-0.012) K/mm3 Nucleated RBC % 0.0 (0.0-0.2) % Sodium 138 (137-145) mmol/L Potassium 4.3 (3.4-5.0) mmol/L Chloride 102 (98-107) mmol/L Carbon Dioxide 27 (22-30) mmol/L Anion Gap 9 (4-12) mmol/L BUN 22 H (9-20) mg/dL Creatinine 1.01 (0.7-1.3) mg/dL Estim Creat Clear Calc 77 ml/min Estimated GFR > 60 (59 - ) Glucose 94 (65-110) mg/dL Calcium 9.3 (8.4-10.2) mg/dL Total Bilirubin 0.7 (0.2-1.3) mg/dL AST 29 (17-59) U/L ALT 35 (6-50) U/L Alkaline Phosphatase 74 (38-126) U/L Total Protein 8.0 (6.3-8.2) g/dL Albumin 4.9 (3.5-5.1) g/dL Urine Color Yellow (Yellow) Urine Appearance Clear (Clear) Urine pH 6.5 (5.0-9.0) Ur Specific [place] 1.011 (1.001-1.035) Urine Protein Negative (Negative) mg/dL Urine Glucose (UA) Negative (Negative) mg/dL Urine Ketones Negative (Negative) mg/dL Ur Blood (Man) Negative (Negative) Urine Nitrate Positive H (Negative) Urine Bilirubin Negative (Negative) Urine Urobilinogen 0.2 (<2.0) mg/dL Leukocyte Esterase Rfl 1+ H (Negative) LANETTE/UL Urine RBC 0-2 (0-2) /hpf Urine WBC 11-20 H (0-3) /hpf Ur Squamous Epith Cells None seen (Few) /hpf Urine Bacteria 4+ H /hpf Urine Casts 0-2 <Rebel Can MD - Last Filed: 11/05/24 20:55> Imaging Data Radiologist's impression: ITS Impressions Head CT 11/05/24 14:28 Impression: No definite acute abnormality seen. Probable mild chronic microvascular ischemic change. Consider MR to further evaluate for acute pathology, as indicated. <Rebel Can MD - Last Filed: 11/05/24 20:55> ECG Data EKG #1: ECG completion date: 11/05/24 <Rebel Can MD - Last Filed: 11/05/24 20:55> ECG completion time: 14:57 <Rebel Can MD - Last Filed: 11/05/24 20:55> EKG Interpretation: normal rate (76), sinus rhythm, non-specific ST changes, normal QRS, normal QT and NL axis <Rebel Can MD - Last Filed: 11/05/24 20:55> Discharge Plan Discharge Clinical Impression: Dizziness, Acute UTI <Selina Hernandez APRN - Last Filed: 11/05/24 13:56> Patient Disposition: Home, Self-Care <Selina Bright January,N - Last Filed: 11/05/24 13:56> Condition: Stable <Selina Bright January, Last Filed: 11/05/24 13:56> Instructions: Urinary Tract Infection in Men (ED), Vertigo (ED) <Selina Bright January, Last Filed: 11/05/24 13:56> Additional Instructions: You should return to the emergency department if you develop severe nausea and vomiting and are unable to keep liquids down, if you develop severe back/flank or stomach pain, or if your symptoms are not clearly improving at home. <Selina Bright January, Last Filed: 11/05/24 13:56> Patient Language: Lao <Selina Bright January, Last Filed: 11/05/24 13:56> Prescriptions: New meclizine 25 mg tablet 25 mg PO TID Qty: 20 0RF cefuroxime axetil 500 mg tablet 500 mg PO Q12H Qty: 14 0RF No Action finasteride 5 mg tablet 5 mg PO DAILY rosuvastatin 20 mg tablet 20 mg PO DAILY Qty: 90 1RF meclizine 25 mg tablet 25 mg PO TID PRN (Reason: dizziness) Qty: 30 0RF <Selina Bright January, Last Filed: 11/05/24 13:56> Follow-up/Referrals: Gama Crystal APRN [Primary Care Provider] - 1 Week <Selina Bright January, Last Filed: 11/05/24 13:56>
--- NOTE | 2024-11-05 13:56 | ECG_ITS ---
Test Date: 2024-11-05 14:57:35 Measurements Intervals [place] Rate: 76 P: 38 RI: 161 QRS: 15 QRSD: 86 T: 10 QT: 384 QTc: 433 Interpretive Statements SINUS RHYTHM EARLY PRECORDIAL R/S TRANSITION BORDERLINE T WAVE ABNORMALITY- INFERIOR LEADS BORDERLINE ECG No previous ECG available for comparison Electronically Signed On 11-05-2024 15:13:05 SPICE CLEANER by Jesús Madsen D.O.
[2024-11-05 14:15] LABS: Basophils Absolute Auto 0.1 K/mm3 (0.0-0.1); Basophils Percent Auto 1.1 % (0.2-1.2); Eosinophils Absolute Auto 0.1 K/mm3 (0-0.3); Eosinophils Percent Auto 1.1 % (0-4.4); Hematocrit 44.7 % (42.0-52.0); Hemoglobin 15.4 g/dL (14.0-18.0); Immature Granulocyte Absolute 0.03 K/mm3 (0.00-0.031); Immature Granulocyte Percent A 0.4 % (0-0.5); Lymphocytes Absolute Auto 1.64 K/mm3 (0.9-3.2); Lymphocytes Percent Auto 19.2 % (18.3-44.2); Mean Corpuscular HGB Conc 34.5 g/dl (32-36); Mean Corpuscular Hemoglobin 29.9 pg (26-34); Mean Corpuscular Volume 86.8 fl (80-100); Mean Platelet Volume 7.9 fl (7.4-10.4); Monocytes Absolute Auto 0.8 K/mm3 (0.1-0.6); Monocytes Percent Auto 8.9 % (2.6-8.5); Neutrophils Absolute Auto 5.9 K/mm3 (1.3-6.7); Neutrophils Percent Auto 69.3 % (45.5-73.1); Platelet Count Result 205 k/mm3 (150-375); Red Blood Count 5.15 M/mm3 (4.6-6.20); Red Cell Distribution Width 12.9 % (11.5-14.5); White Blood Count 8.5 K/mm3 (4.5-10.0)
[2024-11-05 14:27] LABS: Alanine Aminotransferase 35 U/L (6-50); Albumin Level 4.9 g/dL (3.5-5.1); Alkaline Phosphatase 74 U/L (38-126); Anion Gap 9 mmol/L (4-12); Aspartate Amino Transferase 29 U/L (17-59); Bilirubin,Total 0.7 mg/dL (0.2-1.3); Blood Urea Nitrogen 22 mg/dL (9-20); Calcium 9.3 mg/dL (8.4-10.2); Carbon Dioxide 27 mmol/L (22-30); Chloride 102 mmol/L (98-107); Estimated CRCL calculation 77 ml/min; Estimated Glomerular Filt Rate > 60; Glucose 94 mg/dL (65-110); Potassium 4.3 mmol/L (3.4-5.0); Sodium 138 mmol/L (137-145)
--- OUTSIDE RECORDS SUMMARY | 2024-11-05 14:39 | XMS_ITS | Clinical Summary ---
Author Organization [facility] Address [address] [place] [phone] Phone Care Team Providers Care Power Electronics Engineer Name Role Phone Dionisio Jones DO Primary Care Provider [phone] Allergies No known active allergies Medications finasteride [...] on file Legal Sex Male 2:25 PM PIZZA CHEF Gender Identity Not on file Sexual Orientation Not on file Last Filed Vital Signs Vital Sign Reading Time Taken Comments Blood Pressure 110/62 09/06/2020 7:49 AM PIZZA CHEF Pulse 82 09/06/2020 7:49 AM PIZZA CHEF Temperature 36.7 C (98 F) 09/06/2020 7:49 AM PIZZA CHEF Respiratory Rate 16 09/06/2020 7:49 AM PIZZA CHEF Oxygen Saturation 97% 09/06/2020 7:49 AM PIZZA CHEF Inhaled Oxygen Concentration - - Weight 104.2 kg (229 lb 12.8 oz) 09/05/2020 6:47 AM PIZZA CHEF Height 167.6 cm (5' 6 ) 09/05/2020 6:47 AM PIZZA CHEF Body Mass Index 37.09 09/05/2020 6:47 AM PIZZA CHEF Plan of Treatment Health Maintenance Due Date [...] this topic Medical Devices Implanted Type Area English Language Learner Tutor Device Identifier Shelf Expiration Date Model / Serial / Lot Shell R3 3hl 54mm [id number] - [id number] Implanted:Qty : 1 on 09/05/2020 by Bridger Nelson MD at [facility] Hip Left: Hip [employer] 04/09/2030 [id number] / / [id number] Liner R3 Xlpe 0d 2231-4151 - [id number] Implanted:Qty : 1 on 09/05/2020 by Bridger Nelson MD at [facility] Hip Left: Hip [employer] 02/18/2028 [id number] / / [id number] Stem Fem Polarstem Std Sz3 [id number] - [id number] Implanted:Qty : 1 on 09/05/2020 by Bridger Nelson MD at [facility] Hip Left: Hip [employer] [id number] 01/03/2027 [id number] / / [id number] Head Fem Oxnm 09/05 Tpr 36mm 1416-5331 - [id number] Implanted:Qty : 1 on 09/05/2020 by Bridger Nelson MD at [facility] Hip Left: Hip [employer] 11/29/2029 [id number] / / [id number] Screw Sphrcl Hd 6.5x30mm 3513-8679 - [id number] Implanted:Qty : 1 on 09/05/2020 by Bridger Nelson MD at [facility] Screw Left: Hip [employer] 07/01/2029 [id number] / / [id number] (R) Hip 06/12 Advance Directives For more information, please contact: [phone] * Full Code (Latest Code Status on File) Date Activated Date Inactivated Comments 09/05/2020 12:34 PM 09/06/2020 2:29 PM * Full Code Date Activated Date Inactivated Comments 09/05/2020 6:56 AM 09/05/2020 12:34 PM Care Teams Power Electronics Engineer Relationship Specialty Start Date End Date Dionisio Jones DO [address] [facility] [address] [place] [id number] PCP - General Internal Medicine 09/02/20
[2024-11-05] MEDS: SODIUM CHLORIDE 0.9% IV 1,000 ML 999 ML IV CONT (14:41)
[2024-11-05] MEDS: MECLIZINE HCL 25 MG TABLET PO (14:45)
[2024-11-05 15:42] VITALS: BP 166/87; PULSE 70; RESP 18; O2SAT 100
[2024-11-05 15:51] LABS: Add Urine Microscopic? YES; Appearance Urine Clear (Clear); Bacteria Urine 4+ /hpf; Bilirubin Urine Negative (Negative); Blood Urine Negative (Negative); Color Urine Yellow (Yellow); Glucose Urine UA Negative (Negative); Ketones Urine Negative (Negative); Leukocyte Esterase Ur 1+ LEU/UL (Negative); Nitrate Urine Positive (Negative); Non Pathogenic Casts 0-2; Protein Urine Negative (Negative); RBC Urine 0-2 /hpf (0-2); Specific Grav Ur 1.011 (1.001-1.035); Squamous Epithelial Cell Urine None Seen /hpf (Few); Urobilinogen Urine 0.2 mg/dL (<2.0); pH Urine 6.5 (5.0-9.0)
[2024-11-05 17:27] VITALS: BP 167/94; PULSE 87; O2SAT 100
== END 2024-11-05 17:27 | disposition home or self-care (01) ==
PROVIDERS: Nurse Practitioner Family; Emergency Provider Emergency Medicine; PCP Nurse Practitioner
DX: N39.0 Urinary tract infection, site not specified (principal); R42 Dizziness and giddiness; N40.0 Benign prostatic hyperplasia without lower urinary tract symptoms; E78.5 Hyperlipidemia, unspecified; E55.9 Vitamin D deficiency, unspecified; Z96.649 Presence of unspecified artificial hip joint; Z87.891 Personal history of nicotine dependence; Z79.899 Other long term (current) drug therapy
CPT/HCPCS: 36415; 70450; 80053; 81001; 85025; 87077; 87086; 87186; 93005; 96360; 99284; A9270; J7030

== ENCOUNTER 2025-04-05 09:58 | Outpatient (CLI) | payer OTHER, SELFPAY ==
--- NOTE | ~2025-04-05 | MR_ITS ---
MRI of the brain Clinical History: Hearing loss Technique: Axial and sagittal T1-weighted images were acquired. These were followed by axial T2-weigh ander, diffusion weighted, gradient, and FLAIR images. Thin cut axial and coronal T1-weighted and T2-we ighted images were also performed through the internal auditory canals. Following intravenous adminis tration of 20 cc MultiHance gadolinium, T1-weighted fat-sat imaging was performed through the brain i n the axial and coronal planes. Thin cut T1-weighted postcontrast imaging was also performed through the internal auditory canals in the axial and coronal planes. Findings: No acute infarct, intracranial hemorrhage, or mass lesion seen. Extensive white matter lesi ons are present throughout the periventricular white matter, most compatible with moderate to advance d chronic microvascular ischemic change. Ventricles and subarachnoid spaces are unremarkable. Orbits are unremarkable. Paranasal sinuses and m astoid air cells are clear. Major intracranial flow voids are intact. Sagittal midline structures are intact. No abnormal mass lesion seen at the internal auditory canals or CP angle regions. No abnormal postcontrast enhancement identified. IMPRESSION: Moderate to advanced chronic microvascular ischemic change versus possibility of demyelinating diseas e. Correlate clinically. No other significant findings. Reviewed, dictated and finalized at location M. IMPRESSION: Moderate to advanced chronic microvascular ischemic change versus possibility o f demyelinating disease. Correlate clinically. No other significant findings.
== END 2025-04-05 09:59 | disposition home or self-care (01) ==
LOC: MICIMG 10:00
PROVIDERS: PCP Nurse Practitioner; Visit Provider Otolaryngology
DX: H90.3 Sensorineural hearing loss, bilateral (principal)
CPT/HCPCS: 70553; A9577